=== PATIENT | female | born 2000 | race Asian ===

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

== ENCOUNTER 2021-01-25 01:59 | Emergency (ER) | payer OTHER ==
[2021-01-25 02:12] VITALS: BP 142/83; PULSE 77; TEMP 98.4; BMI 44.6
[2021-01-25] MEDS ORDERED: KETOROLAC TROMETHAMINE 15 MG/ML VIAL IM ONE (02:51)
[2021-01-25 03:55] LABS: PH,URINE 5.5 (5.0-8.0); URINE APPEARANCE CLEAR; URINE BILIRUBIN NEGATIVE (NEGATIVE); URINE COLOR YELLOW; URINE GLUCOSE (UA) NEGATIVE (NEGATIVE); URINE KETONE TRACE (NEGATIVE); URINE LEUK ESTERASE NEGATIVE (NEGATIVE); URINE NITRITE NEGATIVE (NEGATIVE); URINE PROTEIN NEGATIVE (NEGATIVE)
[2021-01-25 03:58] LABS: HCG,QUALITATIVE URINE Negative
[2021-01-25] MEDS ORDERED: KETOROLAC TROMETHAMINE 15 MG/ML VIAL ONE (04:02)
== END 2021-01-25 04:07 | disposition home or self-care (01) ==
LOC: JER 01:59
PROC: 3E0233Z Introduction of Anti-inflammatory into Muscle, Percutaneous Approach (ICD-10-PCS; principal; 2021-01-25)
DX: M54.5 Low back pain (principal)
CPT/HCPCS: 81003; 84703; 87077; 87086; 99284-25

== ENCOUNTER 2024-03-01 06:58 | Emergency (ER) | payer OTHER ==
[2024-03-01 07:03] VITALS: BMI 44.6
[2024-03-01] MEDS ORDERED: METOCLOPRAMIDE HCL 10 MG TABLET (FP) PO ONE (09:10)
[2024-03-01] MEDS: SODIUM CHLORIDE 0.9% 500 ML INFUS.BAG IV ONE (09:27)
[2024-03-01] MEDS: METOCLOPRAMIDE HCL 10 MG TABLET (FP) PO ONE (09:28)
[2024-03-01 10:51] VITALS: BP 108/63; PULSE 93; RESP 18; TEMP 97.8
== END 2024-03-01 10:52 | disposition home or self-care (01) ==
LOC: JER 06:58
DX: R51.9 Headache, unspecified (principal); R11.2 Nausea with vomiting, unspecified; R50.9 Fever, unspecified
CPT/HCPCS: 84703; 99284-25

== ENCOUNTER 2024-07-17 09:53 | Emergency (ER) | payer OTHER ==
[2024-07-17 10:01] VITALS: BP 157/88; PULSE 89; RESP 18; TEMP 98.1; BMI 45.4
[2024-07-17 11:34] LABS: EOS % 3.1 % (0-4.5); HEMATOCRIT 37.7 % (32.4-45.2); LYMPH % 21.3 % (8-40); MCH 24.9 pg (25.7-33.7); MCHC 31.8 g/dl (32.0-36.0); MEAN CELL VOLUME 78.2 fl (80-96); MEAN PLT VOLUME 6.7 fl (7.5-11.1); MONO % 6.5 % (3.8-10.2); NEUT % 68.1 % (42.8-82.8); PLATELET COUNT 457 10^3/uL (134-434); RBC 4.82 M/mm3 (3.60-5.2); RDW 15.9 % (11.6-15.6); WHITE BLOOD COUNT 9.8 K/mm3 (4.0-10.0)
[2024-07-17 12:03] LABS: CALCIUM 9.4 mg/dL (8.5-10.1)
[2024-07-17 12:04] LABS: ALBUMIN 3.4 g/dl (3.4-5.0); BLOOD UREA NITROGEN 14.9 mg/dL (7-18)
[2024-07-17 12:07] LABS: CREATININE 0.7 mg/dL (0.55-1.3)
[2024-07-17 12:08] LABS: BILIRUBIN,TOTAL 0.2 mg/dL (0.2-1); TOT PROT 7.5 g/dl (6.4-8.2)
[2024-07-17 14:30] LABS: HIV INTERPRETATION NEGATIVE (NEGATIVE)
== END 2024-07-17 11:13 | disposition home or self-care (01) ==
LOC: JER 09:53 → JERFT 09:53
DX: S61.231A Puncture wound without foreign body of left index finger without damage to nail, initial encounter (principal); W46.1XXA Contact with contaminated hypodermic needle, initial encounter
CPT/HCPCS: 36415; 80053; 85025; 86704; 86803; 87340; 87389; 87517; 99283-25